=== PATIENT | female | born 1940 | race Caucasian/White ===

== ENCOUNTER 2017-11-29 06:06 | Emergency (ER) | payer OTHER ==
[~2017-11-29] VITALS: Ht 157.5 cm; Wt 81.7 kg
[~2017-11-29 06:06] MED LIST: CARAFATE 1 GM TA1 GM; DIOVAN40 MG PO; LEVAQUIN 500 M500 M1 PO; OMEPRAZOLE40 MG PO; TRAMADOL 50 MG50 MG PO; VICODIN 5-3001 EACH
[2017-11-29] MEDS ORDERED: MEDROLDOSEPACK PO (06:58)
[2017-11-29] MEDS ORDERED: LOPRESSOR50 PO (07:02)
[2017-11-29 07:17] VITALS: BP 191/93
== END 2017-11-29 07:18 | disposition home or self-care (01) ==
LOC: M.ERS 06:06
DX: M25.551 Pain in right hip (principal); I10 Essential (primary) hypertension; K21.9 Gastro-esophageal reflux disease without esophagitis; M81.0 Age-related osteoporosis without current pathological fracture; Z87.442 Personal history of urinary calculi; Z96.642 Presence of left artificial hip joint; Z88.2 Allergy status to sulfonamides

== ENCOUNTER 2018-05-20 12:00 | Emergency (ER) | payer OTHER ==
[~2018-05-20] VITALS: Ht 152.4 cm; Wt 88.5 kg
[~2018-05-20 12:00] MED LIST changes: +LOPRESSOR50 PO; +MEDROLDOSEPACK PO
[2018-05-20] MEDS ORDERED: HYDROCODONE-AP1 EAC6 PO (16:02)
[2018-05-20 17:05] VITALS: BP 128/63
== END 2018-05-20 17:05 | disposition home or self-care (01) ==
LOC: M.ERS 12:00
DX: S52.591A Other fractures of lower end of right radius, initial encounter for closed fracture (principal); I10 Essential (primary) hypertension; M81.0 Age-related osteoporosis without current pathological fracture; K21.9 Gastro-esophageal reflux disease without esophagitis; Z96.642 Presence of left artificial hip joint; Z88.2 Allergy status to sulfonamides; Z87.442 Personal history of urinary calculi; W22.8XXA Striking against or struck by other objects, initial encounter; Y93.89 Activity, other specified; Y92.89 Other specified places as the place of occurrence of the external cause; Y99.8 Other external cause status